=== PATIENT | female | born 1945 | race Caucasian/White ===

== ENCOUNTER 2017-01-05 14:12 | Outpatient (CLI) | payer OTHER ==
--- NOTE | 2017-01-05 14:58 | DIAGNOSTIC IMAGING REPORT ---
PROCEDURE: DEXA BONE DENSITY STUDY CLINICAL INDICATION: OSTEOPOROSIS COMPARISON: DEXA 02/27/2013 FINDINGS: LUMBAR SPINE: Bone mineral density 1.090 g/cm2, T score 0.4 normal LEFT HIP: Bone mineral density 0.923 g/cm2, T score -0.2 normal which represents a 10.2% decrease from the previous study LEFT FEMORAL NECK: Bone mineral density 0.663 g/cm2, T score -1.7 osteopenia which represents a 5.6% decrease from the previous study FRACTURE RISK CALCULATION ( when applicable): 10-year fracture risk of a major osteoporotic fracture 9.7% and of a hip fracture 1.6% (T score greater or equal to -1.0 to: NORMAL) (T score from -1.1 to -2.4: OSTEOPENIA) (T score ess than or equal to -2.5: OSTEOPOROSIS) IMPRESSION: 1. Osteopenia femoral neck with a 10-year fracture risk of 9.7% and a hip fracture risk of 1.6%
--- NOTE | 2017-01-05 16:43 | DIAGNOSTIC IMAGING REPORT ---
PROCEDURE: MG BILATERAL SCREENING W/CAD INDICATION: SCREENING TECHNIQUE: Bilateral CC and MLO digital views. COMPARISON: Compared to 02/27/2013, 05/25/2011, and 05/28/2009. FINDINGS: Computer-aided detection applied. Moderately dense with asymmetric parenchyma, and a few dystrophic calcifications. No change. IMPRESSION: 1. Negative mammogram. RESULT CODE: 1- Negative. A. A negative report should not delay biopsy if a dominant or clinically suspicious mass is present. 10-15% of cancers are not identified by x-ray. B. A negative report may reinforce clinical impression. C. Adenosis and dense breasts may obscure an underlying neoplasm. D. False positive reports average 6-10%. E.. A yearly screening mammogram is recommended. A reminder letter will be scheduled.
== END 2017-01-05 23:00 ==
LOC: MAM SRH 14:12
DX: Z12.31 Encounter for screening mammogram for malignant neoplasm of breast (principal); M85.80 Other specified disorders of bone density and structure, unspecified site